=== PATIENT | male | born 1945 | race Caucasian/White ===

== ENCOUNTER → 2017-08-13 | Outpatient (CLI) | payer MEDICARE ==
[2017-08-13 12:09] LABS: Blood Urea Nitrogen 15 mg/dL (9-20)
--- NOTE | 2017-08-13 13:39 | CT ---
EXAMINATION TYPE: CT abdomen pelvis w con DATE OF EXAM: 08/13/2017 COMPARISON: 09/19/2013 HISTORY: Generalized pain and hematuria CT DLP: 1444.4 mGycm CONTRAST: CT scan of the abdomen and pelvis is performed with Oral Contrast and with IV Contrast, patient injec earnestine with 100 mL of Isovue 300. FINDINGS: LUNG BASES-: No visible nodule. No infiltrate. LIVER/GB: No calcified gallstones. No space occupying hepatic lesion. Biliary tree is of normal ca liber. PANCREAS: No inflammation. No distinct mass. SPLEEN: No splenic enlargement. No lesion seen. ADRENALS: No nodule. No thickening. KIDNEYS/BLADDER: No hydronephrosis. No nephrolithiasis. No distinct renal mass. Distention of the urinary bladder with craniocaudal measurement of 15.76 cm in transverse dimension of 15.5 cm. BOWEL: Normal appendix. Normal bowel caliber. No inflammation. GENITAL ORGANS: Prostate gland enlargement. LYMPH NODES: No greater than 1cm abdominal or pelvic lymph nodes are appreciated. AORTA: No significant abnormality. OSSEOUS STRUCTURES: No significant abnormality is seen. OTHER: Fat-containing inguinal hernias bilaterally left greater than right. IMPRESSION: 1. Bilateral fat-containing inguinal hernias. 2. Distention of the urinary bladder.
== END ==
LOC: RADCTMAIN 09:50
PROVIDERS: ATTEND Urology
DX: R31.0 Gross hematuria (principal); K40.20 Bilateral inguinal hernia, without obstruction or gangrene, not specified as recurrent
CPT/HCPCS: 82565; 84520; 74177; 36415; Q9967

== ENCOUNTER → 2019-07-14 | Outpatient (CLI) | payer MEDICARE ==
[2019-07-14 16:38] LABS: Chol/HDL Ratio 3.71
[2019-07-14 18:04] LABS: Hemoglobin A1C 6.4 % (4.0-6.0)
== END | disposition home or self-care (01) ==
LOC: LABWHC1 09:48
PROVIDERS: ATTEND Internal Medicine Clinical Cardiac Electrophysiology
DX: R73.9 Hyperglycemia, unspecified (principal); E78.5 Hyperlipidemia, unspecified
CPT/HCPCS: 36415; 80061; 83036

== ENCOUNTER → 2024-10-31 | Outpatient (CLI) | payer MEDICARE ==
--- NOTE | 2024-10-31 08:22 | MR ---
EXAMINATION TYPE: MR Prostate wo/w con DATE OF EXAM: 10/31/2024 COMPARISON: None. INDICATION: Elevated PSA PSA: 5.51 ng/ml in September 2024 Recent Biopsy and Date: None Pathology Report (If Applicable): n/a TECHNIQUE: Examination was performed using a 3T MRI without an endorectal coil. Multiparametric imaging was perf ormed with T2 mutliplanar sequences, axial diffusion weighted imaging and dynamic contrast enhanced i maging, utilizing 8 mL intravenous Gadobutrol gadolinium contrast. FINDINGS: PROSTATE VOLUME: 4.9 cm SI x 4.0 cm AP x 5.0 cm LR Vol= 51.3 cc PSA DENSITY: 0.11 ng/ml/cc Slightly enlarged prostate consistent with BPH is present. There is wedge-shaped area of slightly dim inished signal on ADC mapping in the medial left peripheral zone. No areas of marked diminished signa l are identified. There are several nodules bilaterally in the transitional zone. No suspicious T2 hy pointense areas. No areas of marked increased signal on diffusion-weighted images. Assessment Catego ry:2 At least moderate distention of bladder is present. No destructive osseous lesions. There is a fat co ntaining inguinal hernias bilaterally. IMPRESSION: Slightly enlarged prostate consistent with BPH. A focus of clinically significant cancer is not identified. Highest Assessment Category: 2 MRI Stage: T0 N0 M0 based on review of pelvic images. False negative rates for MRI range from 5-20% depending on risk profile. Assessment Categories: 1 ? Very low (clinically significant cancer is highly unlikely to be present) 2 ? Low (clinically significant cancer is unlikely to be present) 3 ? Intermediate (the presence of clinically significant cancer is equivocal) 4 ? High (clinically significant cancer is likely to be present) 5 ? Very high (clinically significant cancer is highly likely to be present) [facility], , 10/31/2024 8:20 AM
== END | disposition home or self-care (01) ==
LOC: RADMRIMAIN 06:11
PROVIDERS: ATTEND Urology
DX: N40.0 Benign prostatic hyperplasia without lower urinary tract symptoms (principal); R97.20 Elevated prostate specific antigen [PSA]
CPT/HCPCS: 72197; A9585